=== PATIENT | male | born 1960 | race Caucasian/White ===

== ENCOUNTER 2016-04-15 | Emergency (ER) | payer OTHER | END 2016-04-16 01:35 | disposition left against medical advice (07) | DX: Z53.21 Procedure and treatment not carried out due to patient leaving prior to being seen by health care provider (principal) ==

== ENCOUNTER → 2016-05-25 | Outpatient (CLI) | payer OTHER | LOC: EXRD 09:50 | DX: J44.1 Chronic obstructive pulmonary disease with (acute) exacerbation (principal) | CPT/HCPCS: 71020 ==

== ENCOUNTER 2021-03-29 14:29 | Inpatient (IN) | payer OTHER ==
[~2021-03-29] VITALS: Ht 175.3 cm; Wt 91.2 kg
[~2021-03-29 14:29] MED LIST: CIPRO500 MG PO; CORTISPORIN OTI10 M1 EARRT; IBUPROFEN600 MG PO; MEDROL4 MG PO
[2021-03-29 16:40] LABS: HEMOGLOBIN 15.1 gm/dl (14.0-17.5); RED BLOOD COUNT 5.1 M/UL (4.20-5.50); WHITE BLOOD COUNT 5.7 K/UL (4.5-11.0)
[2021-03-29 17:09] LABS: BUN/CREATININE RATIO 11 (0-10)
[2021-03-30 05:05] LABS: RED BLOOD COUNT 4.84 M/UL (4.20-5.50)
[2021-03-30 05:07] LABS: WHITE BLOOD COUNT 2.8 K/UL (4.5-11.0)
[2021-03-30 05:44] LABS: BUN/CREATININE RATIO 16 (0-10)
[2021-03-30] MEDS ORDERED: ADVAIR 250-501 EACH INH (10:29)
[2021-03-30] MEDS ORDERED: PROAIR HFA8.5 GM INH (10:29)
[2021-03-30] MEDS ORDERED: PROTONIX 40 MG40 M1 PO (10:29)
[2021-03-30] MEDS ORDERED: AMLODIPINE BESY10 MG PO (10:30)
[2021-03-30] MEDS ORDERED: TYLENOL EXTRA500 MG PO (10:30)
[2021-03-30] MEDS ORDERED: ALBUTEROL0.63 MG/3 INH (10:30)
[2021-03-30] MEDS ORDERED: ASPIRIN EC81 MG PO (10:31)
[2021-03-31 06:08] LABS: BUN/CREATININE RATIO 22 (0-10)
[2021-04-02] MEDS ORDERED: DEXAMETHASONE6 MG PO (11:49)
--- NOTE | 2021-04-02 12:41 | NUR ---
CALLED [facility] REGARDING PATIENT'S HOME O2, WAITING FOR RETURN CALL.
--- NOTE | 2021-04-02 13:34 | NUR ---
[facility] RETURNED CALL AND WILL BE DELIVERING O2 TO PATIENT PRIOR TO D/C
--- NOTE | 2021-04-02 15:49 | NUR ---
SPOKE WITH PATIENT, HIS PHARMACY IS CLOSED TODAY SO HE CANNOT [employer] OFFICER HIS SCRIPT. CALLED DR CARDOZA AND SHE IS GOING TO PROVIDE A STEROID PRESCRIPTION. I CALLED THE PATIENT BACK AT HOME TO LET HIM KNOW. HIS DAUGHTER IS GOING TO PICK IT UP TODAY. LEFT AT THE RECORDS TECH'S DESK ON FIFTH FLOOR.
== END 2021-04-02 15:42 | disposition home or self-care (01) | DRG 177 ==
LOC: ER1 14:29 → CDU 17:39 → M/S 03-30 16:47
PROVIDERS: Emergency Medicine; ADMIT Internal Medicine
PROC: 3E0333Z Introduction of Anti-inflammatory into Peripheral Vein, Percutaneous Approach (ICD-10-PCS; principal; 2021-03-30)
PROC: 8E0ZXY6 Isolation (ICD-10-PCS; 2021-03-30)
DX: U07.1 COVID-19 (principal); J12.82 Pneumonia due to coronavirus disease 2019; J96.01 Acute respiratory failure with hypoxia; I10 Essential (primary) hypertension; F17.200 Nicotine dependence, unspecified, uncomplicated
CPT/HCPCS: 0240U; 36415; 36600; 71045; 80048; 80053; 82550; 82553; 82803; 82962; 83036; 83605; 83874; 83880; 84484; 85025; 85379; 87040; 93005; 94640; 94664; 94760; 96372; 96374; 96376; 99284; J1100; J1650